=== PATIENT | female | born 1940 | race Caucasian/White ===

== ENCOUNTER 2021-01-25 10:34 | Inpatient (IN) | payer MEDICARE ==
[2021-01-25] VITALS (24 sets, daily range): BP systolic 106–142; BP diastolic 40–96
[~2021-01-25] VITALS: Ht 160 cm; Wt 48.2 kg
[~2021-01-25 10:34] MED LIST: ATOR10 PO; FAMO20TA8 PO; LEVO75CA5 PO; OLME20TA10 PO
[2021-01-25] MEDS ORDERED: SENN8.6T32 PO (12:10)
[2021-01-25] MEDS ORDERED: DOCU-116 PO (12:16)
[2021-01-25] MEDS ORDERED: ALBU6.7H9 IH (12:16)
[2021-01-25] MEDS ORDERED: FAMO-136 PO (12:16)
[2021-01-25] MEDS ORDERED: ENOX40DI8 SQ (12:16)
[2021-01-25] MEDS ORDERED: SACU1TAB PO (12:16)
[2021-01-25] MEDS ORDERED: LEVO88TA4 PO (12:16)
[2021-01-25] MEDS ORDERED: POLY17PO4 PO (12:16)
[2021-01-25] MEDS ORDERED: ATOR10TA PO (12:16)
[2021-01-25] MEDS ORDERED: HYDR12.54 PO (12:16)
[2021-01-25] MEDS: CEFAZOLIN SODIUM 1 GM VIAL IVP SCH ×2 (13:35→21:19)
[2021-01-25] MEDS ORDERED: LACTATED RINGERS 1000ML 1,000 ML IV ONE (14:09)
[2021-01-25] MEDS ORDERED: FENTANYL CITRATE PF 50 MCG/1 ML 2ML VIAL ONE (14:12)
[2021-01-25] MEDS ORDERED: MIDAZOLAM HCL 1 MG/ML 2ML VIAL ONE (14:12)
[2021-01-25] MEDS ORDERED: ROCURONIUM 10MG/1ML SYR 10 MG/ML ML ONE (14:16)
[2021-01-25] MEDS ORDERED: ONDANSETRON 4MG INJ ONE (15:09)
[2021-01-25] MEDS ORDERED: EPHEDRINE SULFATE 50 MG/ML AMPULE ONE (15:16)
[2021-01-25] MEDS ORDERED: BACITRACIN 28.4 GM OINT TP ONE (15:32)
[2021-01-25] MEDS ORDERED: TRAMADOL HCL 50 MG TABLET PEG PRN (20:00)
[2021-01-25] MEDS: LACTOBACILLUS RHAMNOSUS GG 1 EACH CAP.SPRINK PO SCH (21:19)
[2021-01-25] MEDS: ATORVASTATIN 10 MG TABLET PEG SCH (21:36)
[2021-01-26 03:42] VITALS: BP 156/72
[2021-01-26 04:30] LABS: BASOPHILS % (AUTO) 0.5 % (0.0-5.0); HEMATOCRIT 30.7 % (36-48); LYMPHOCYTES % (AUTO) 13.5 % (21.0-51.0); MEAN CORPUSCULAR HEMOGLOBIN 30.4 pg (27.0-33.0); MEAN CORPUSCULAR HGB CONC 31.6 g/dL (32.0-36.0); MEAN CORPUSCULAR VOLUME 96.2 fL (79-99); NEUTROPHILS % (AUTO) 80.9 % (40.0-77.0); PLATELET COUNT (AUTO) 545 K/uL (130-400); RED BLOOD CELL COUNT(AUTO) 3.19 MIL/uL (4.00-5.50); RED CELL DISTRIBUTION WIDTH 13.8 % (11.0-15.5); WHITE BLOOD COUNT (AUTO) 14.6 K/uL (4.8-10.8)
[2021-01-26 05:12] LABS: % IRON SATURATION 15.8 % (22-44); ALANINE AMINOTRANSFERASE 65 U/L (12-78); ALBUMIN 2.6 g/dL (3.5-5.0); ASPARTATE AMINOTRANSFERASE 35 U/L (10-37); BILIRUBIN,TOTAL 0.4 mg/dL (0.2-1.0); CARBON DIOXIDE 26 mmol/L (21-32); CHLORIDE 104 mmol/L (101-111); CREATININE 0.8 mg/dL (0.5-1.5); GLOMERULAR FILTR. RATE CALC 73 mL/min (>60); GLUCOSE,RANDOM 118 mg/dL (70-105); PHOSPHORUS 3.2 mg/dL (2.5-4.9); POTASSIUM 4.2 mmol/L (3.5-5.1); SODIUM SERUM 140 mmol/L (136-145); TOTAL PROTEIN, SERUM 6.1 g/dL (6.0-8.3); UREA NITROGEN, BLOOD 23 mg/dL (7-18)
[2021-01-26] MEDS: CEFAZOLIN SODIUM 1 GM VIAL IVP SCH ×3 (05:32→21:45)
[2021-01-26] MEDS: LEVOTHYROXINE 88 MCG TABLET PEG SCH (05:32)
[2021-01-26 08:00] VITALS: BP 140/84
[2021-01-26] MEDS: HYDROCHLOROTHIAZIDE 25 MG TABLET PEG SCH (09:48)
[2021-01-26] MEDS: ENOXAPARIN SODIUM 30 MG/0.3 ML SQ SCH (09:48)
[2021-01-26] MEDS: FAMOTIDINE 20MG TAB PEG SCH (09:48)
[2021-01-26 12:10] VITALS: BP 120/35
[2021-01-26 16:16] VITALS: BP 132/57
[2021-01-26] MEDS ORDERED: ARTIFICAL TEARS SOL 15 ML OU PRN (20:00)
[2021-01-26 21:28] VITALS: BP 143/76
[2021-01-26] MEDS: LACTOBACILLUS RHAMNOSUS GG 1 EACH CAP.SPRINK PO SCH (21:45)
[2021-01-26] MEDS: ATORVASTATIN 10 MG TABLET PEG SCH (21:45)
[2021-01-26 23:52] VITALS: BP 143/76
[2021-01-27 03:29] VITALS: BP 156/63
[2021-01-27 04:52] VITALS: BP 156/53
[2021-01-27 04:57] LABS: BASOPHILS % (AUTO) 0.9 % (0.0-5.0); HEMATOCRIT 29.7 % (36-48); LYMPHOCYTES % (AUTO) 15.3 % (21.0-51.0); MEAN CORPUSCULAR HEMOGLOBIN 30.5 pg (27.0-33.0); MEAN CORPUSCULAR HGB CONC 32.3 g/dL (32.0-36.0); MEAN CORPUSCULAR VOLUME 94.3 fL (79-99); MONOCYTES % (AUTO) 9.3 % (3.0-13.0); NEUTROPHILS % (AUTO) 71.7 % (40.0-77.0); PLATELET COUNT (AUTO) 514 K/uL (130-400); RED BLOOD CELL COUNT(AUTO) 3.15 MIL/uL (4.00-5.50); RED CELL DISTRIBUTION WIDTH 14.4 % (11.0-15.5); WHITE BLOOD COUNT (AUTO) 16.7 K/uL (4.8-10.8)
[2021-01-27 05:13] LABS: ALBUMIN 2.7 g/dL (3.5-5.0); BILIRUBIN,TOTAL 0.4 mg/dL (0.2-1.0); CREATININE 0.8 mg/dL (0.5-1.5); POTASSIUM 3.6 mmol/L (3.5-5.1); TOTAL PROTEIN, SERUM 6.1 g/dL (6.0-8.3)
[2021-01-27] MEDS: LEVOTHYROXINE 88 MCG TABLET PEG SCH (06:43)
[2021-01-27] MEDS: CEFAZOLIN SODIUM 1 GM VIAL IVP SCH ×2 (06:43→13:50)
[2021-01-27 08:00] VITALS: BP 133/58
[2021-01-27] MEDS: HYDROCHLOROTHIAZIDE 25 MG TABLET PEG SCH (08:34)
[2021-01-27] MEDS: FAMOTIDINE 20MG TAB PEG SCH (08:35)
[2021-01-27] MEDS: ENOXAPARIN SODIUM 30 MG/0.3 ML SQ SCH (08:36)
[2021-01-27 16:00] VITALS: BP 125/66
== END 2021-01-27 18:45 | DRG 907 ==
LOC: 3CH 10:34
PROVIDERS: ADMIT Otolaryngology; ATTEND Otolaryngology
PROC: 0KB20ZZ Excision of Right Neck Muscle, Open Approach (ICD-10-PCS; principal; 2021-01-25 15:06)
DX: T81.31XA Disruption of external operation (surgical) wound, not elsewhere classified, initial encounter (principal); E43 Unspecified severe protein-calorie malnutrition; Z68.1 Body mass index [BMI] 19.9 or less, adult; C10.9 Malignant neoplasm of oropharynx, unspecified; E78.5 Hyperlipidemia, unspecified; D63.0 Anemia in neoplastic disease; E03.9 Hypothyroidism, unspecified; K21.9 Gastro-esophageal reflux disease without esophagitis; I11.0 Hypertensive heart disease with heart failure; I50.9 Heart failure, unspecified; R74.02 Elevation of levels of lactic acid dehydrogenase [LDH]; Y83.8 Other surgical procedures as the cause of abnormal reaction of the patient, or of later complication, without mention of misadventure at the time of the procedure; Z93.0 Tracheostomy status; Y92.89 Other specified places as the place of occurrence of the external cause; Z85.818 Personal history of malignant neoplasm of other sites of lip, oral cavity, and pharynx; Z88.2 Allergy status to sulfonamides; Z88.5 Allergy status to narcotic agent; Z83.3 Family history of diabetes mellitus; Z82.49 Family history of ischemic heart disease and other diseases of the circulatory system; Z82.3 Family history of stroke
CPT/HCPCS: 36415; 80053; 82607; 82728; 82746; 83540; 83550; 83735; 84100; 84145; 85025; 85045; 87070; 87076; 87077; 87186; 87205; A4606; G0378; J0690; J1650; J2250; J2405; J3010; J3490; J7120

== ENCOUNTER 2021-01-31 16:08 | Inpatient (IN) | payer MEDICARE ==
[~2021-01-31] VITALS: Ht 157.5 cm; Wt 50.9 kg
[~2021-01-31 16:08] MED LIST changes: +ALBU6.7H9 IH; -ATOR10 PO; +ATOR10TA PO; +DOCU-116 PO; +ENOX40DI8 SQ; +FAMO-136 PO; -FAMO20TA8 PO; +HYDR12.54 PO; -LEVO75CA5 PO; +LEVO88TA4 PO; -OLME20TA10 PO; +POLY17PO4 PO; +SENN8.6T32 PO
[2021-01-31 18:30] VITALS: BP 111/32
[2021-01-31] MEDS ORDERED: ACETAMINOPHEN 650 MG/20.3 ML UDCUP PEG PRN ×2 (18:30)
[2021-01-31] MEDS ORDERED: NITROGLYCERIN 0.4 MG SL TAB SL PRN (18:30)
[2021-01-31] MEDS ORDERED: 0.9%NACL 1000ML 1,000 ML IV SCH (18:30)
[2021-01-31] MEDS ORDERED: ONDANSETRON 4MG INJ IV PRN (18:30)
[2021-01-31 19:10] LABS: HEMATOCRIT 30.4 % (36-48); MEAN CORPUSCULAR HEMOGLOBIN 30.8 pg (27.0-33.0); MEAN CORPUSCULAR HGB CONC 32.2 g/dL (32.0-36.0); MEAN CORPUSCULAR VOLUME 95.6 fL (79-99); PLATELET COUNT (AUTO) 453 K/uL (130-400); RED BLOOD CELL COUNT(AUTO) 3.18 MIL/uL (4.00-5.50); RED CELL DISTRIBUTION WIDTH 14.1 % (11.0-15.5); WHITE BLOOD COUNT (AUTO) 13.1 K/uL (4.8-10.8)
[2021-01-31 19:22] LABS: INR 1.09 (0.85-1.15); PROTHROMBIN TIME 11.8 SEC (9.6-11.6)
[2021-01-31 19:23] LABS: PARTIAL THROMBOPLASTIN TIME 28.9 SEC (26.3-35.5)
[2021-01-31 19:28] LABS: BAND NEUTROPHILS % (MANUAL) 4 % (0-2); BASOPHILS % (MANUAL) 3 % (0-2); EOSINOPHILS % (MANUAL) 5 % (1-6); LYMPHOCYTES % (MANUAL) 10 % (22-44); MAN.DIFF COMMENT-IMPRESSION MANUAL DIFFERENTIAL; MONOCYTES % (MANUAL) 3 % (2-9); REACTIVE LYMPHOCYTES 2 % (0-0); SEGMENTED NEUTROPHILS % 73 % (40-70)
[2021-01-31 19:29] LABS: PLATELET MORPHOLOGY COMMENT LARGE PLTS PRESENT
[2021-01-31 19:33] LABS: ALBUMIN 2.8 g/dL (3.5-5.0); BILIRUBIN,TOTAL 0.4 mg/dL (0.2-1.0); CREATININE 0.8 mg/dL (0.5-1.5); MAGNESIUM 1.7 mg/dL (1.80-2.40); POTASSIUM 3.5 mmol/L (3.5-5.1); TOTAL PROTEIN, SERUM 6.4 g/dL (6.0-8.3)
[2021-01-31 20:36] VITALS: BP 125/42
[2021-01-31] MEDS: 0.9%NACL 1000ML 1,000 ML IV SCH (20:51)
[2021-01-31] MEDS: FAMOTIDINE 20MG VIAL IV SCH (21:23)
[2021-01-31] MEDS ORDERED: MAGNESIUM 2GM PREMIX 50ML 50 ML IV SCH (23:30)
[2021-02-01] VITALS (25 sets, daily range): BP systolic 121–166; BP diastolic 41–71
[2021-02-01] MEDS: 0.9%NACL 1000ML 1,000 ML IV SCH ×2 (05:59→17:21)
[2021-02-01 06:01] LABS: BASOPHILS % (AUTO) 1.6 % (0.0-5.0); EOSINOPHILS % (AUTO) 2.7 % (0.0-8.0); HEMATOCRIT 32.6 % (36-48); MEAN CORPUSCULAR HEMOGLOBIN 30.9 pg (27.0-33.0); MEAN CORPUSCULAR HGB CONC 31.9 g/dL (32.0-36.0); MEAN CORPUSCULAR VOLUME 96.7 fL (79-99); MONOCYTES % (AUTO) 9.4 % (3.0-13.0); NEUTROPHILS % (AUTO) 67.7 % (40.0-77.0); PLATELET COUNT (AUTO) 420 K/uL (130-400); RED BLOOD CELL COUNT(AUTO) 3.37 MIL/uL (4.00-5.50); RED CELL DISTRIBUTION WIDTH 14.3 % (11.0-15.5); WHITE BLOOD COUNT (AUTO) 11.2 K/uL (4.8-10.8)
[2021-02-01 06:48] LABS: % IRON SATURATION 31.5 % (22-44)
[2021-02-01] MEDS ORDERED: LIDOCAINE 1%-EPI 1:100,000 20 ML VIAL IJ ONE (08:33)
[2021-02-01] MEDS ORDERED: CEFAZOLIN SODIUM 1 GM VIAL ONE (08:33)
[2021-02-01] MEDS ORDERED: MINERAL OIL 30 ML UDCUP ONE (08:33)
[2021-02-01] MEDS ORDERED: DEXAMETHASONE SOD PHOSPHATE 10MG/ML 1ML VIAL ONE (08:56)
[2021-02-01] MEDS ORDERED: SUCCINYLCHOLINE CHLORIDE 20 MG/ML 10 ML VIAL ONE (08:56)
[2021-02-01] MEDS ORDERED: GLYCOPYRROLATE 1 MG/5 ML SYRINGE ONE (08:56)
[2021-02-01] MEDS ORDERED: LIDOCAINE PF 100MG/5ML (2%) SYRINGE 5ML ONE (08:56)
[2021-02-01] MEDS ORDERED: NEOSTIGMINE 5MG/5ML SYR IV ONE (08:57)
[2021-02-01] MEDS ORDERED: ROCURONIUM 10MG/1ML SYR 10 MG/ML ML ONE ×2 (08:57→10:53)
[2021-02-01] MEDS ORDERED: MIDAZOLAM HCL 1 MG/ML 2ML VIAL ONE (08:57)
[2021-02-01] MEDS ORDERED: ONDANSETRON 4MG INJ ONE ×2 (08:57→10:27)
[2021-02-01] MEDS ORDERED: PROPOFOL 10 MG/ML 20ML VIAL IV ONE (08:57)
[2021-02-01] MEDS ORDERED: FENTANYL CITRATE PF 50 MCG/1 ML 5ML AMP IV ONE (08:59)
[2021-02-01] MEDS: FAMOTIDINE 20MG VIAL IV SCH ×2 (09:00→21:07)
[2021-02-01] MEDS ORDERED: EPHEDRINE SULFATE 50 MG/ML AMPULE ONE (09:36)
[2021-02-01] MEDS ORDERED: PHENYLEPHRINE HCL 10 MG/ML 1ML VIAL IV ONE (11:28)
[2021-02-01] MEDS ORDERED: MEPERIDINE-PF 25 MG/ML SYG ONE (13:08)
[2021-02-01] MEDS ORDERED: NEOMY SULF/BACITRAC ZN/POLY OINT 30GM TUBE TP ONE (13:15)
[2021-02-01] MEDS ORDERED: BACITRACIN 28.4 GM OINT TP ONE (13:17)
[2021-02-01] MEDS ORDERED: POTASSIUM CHLORIDE 20MEQ/100ML 100 ML IV PRN (15:00)
[2021-02-01] MEDS ORDERED: LIDOCAINE HCL-MPF 1% 2ML VIAL IV PRN (15:00)
[2021-02-02] VITALS (7 sets, daily range): BP systolic 128–161; BP diastolic 43–61
[2021-02-02] MEDS: 0.9%NACL 1000ML 1,000 ML IV SCH (04:22)
[2021-02-02] MEDS ORDERED: PHARMACY COMMUNICATION MISC SCH ×2 (08:30→09:30)
[2021-02-02] MEDS ORDERED: DOCUSATE SODIUM 100 MG CAP PO SCH (09:00)
[2021-02-02] MEDS: HYDROCHLOROTHIAZIDE 25 MG TABLET PO SCH (09:48)
[2021-02-02] MEDS: POLYETHYLENE GLYCOL 3350 17 GM POWD.PACK PO SCH (09:48)
[2021-02-02] MEDS: DOCUSATE NA 100MG/10ML UDCUP PEG SCH ×2 (09:48→22:59)
[2021-02-02] MEDS: FAMOTIDINE 20MG TAB PO SCH (09:48)
[2021-02-02] MEDS ORDERED: LEVOFLOXACIN 500 MG/D5W 100 ML 100 ML IV SCH (19:30)
[2021-02-02] MEDS ORDERED: ATORVASTATIN 10 MG TABLET PO SCH (21:00)
[2021-02-02] MEDS ORDERED: SENNOSIDES 8.6 MG TABLET PO SCH (21:00)
[2021-02-02] MEDS: SENNOSIDES 8.6 MG TABLET PO SCH (22:59)
[2021-02-03 03:50] VITALS: BP 136/52
[2021-02-03 04:41] LABS: BASOPHILS % (AUTO) 0.9 % (0.0-5.0); EOSINOPHILS % (AUTO) 5.5 % (0.0-8.0); HEMATOCRIT 28.5 % (36-48); LYMPHOCYTES % (AUTO) 11.1 % (21.0-51.0); MEAN CORPUSCULAR HEMOGLOBIN 30.4 pg (27.0-33.0); MEAN CORPUSCULAR HGB CONC 31.2 g/dL (32.0-36.0); MEAN CORPUSCULAR VOLUME 97.3 fL (79-99); PLATELET COUNT (AUTO) 346 K/uL (130-400); RED BLOOD CELL COUNT(AUTO) 2.93 MIL/uL (4.00-5.50); RED CELL DISTRIBUTION WIDTH 14.5 % (11.0-15.5); WHITE BLOOD COUNT (AUTO) 16.4 K/uL (4.8-10.8)
[2021-02-03 05:00] LABS: ALBUMIN 2.3 g/dL (3.5-5.0); CREATININE 0.8 mg/dL (0.5-1.5); MAGNESIUM 1.5 mg/dL (1.80-2.40); PHOSPHORUS 2.1 mg/dL (2.5-4.9); POTASSIUM 3.5 mmol/L (3.5-5.1)
[2021-02-03] MEDS ORDERED: LEVOTHYROXINE 100 MCG TABLET PO SCH (06:30)
[2021-02-03 07:30] VITALS: BP 124/40
[2021-02-03] MEDS: DOCUSATE NA 100MG/10ML UDCUP PEG SCH ×2 (08:49→22:51)
[2021-02-03] MEDS: POLYETHYLENE GLYCOL 3350 17 GM POWD.PACK PO SCH (08:49)
[2021-02-03] MEDS: FAMOTIDINE 20MG TAB PO SCH (08:49)
[2021-02-03] MEDS: HYDROCHLOROTHIAZIDE 25 MG TABLET PO SCH (08:50)
[2021-02-03] MEDS ORDERED: EPOETIN ALFA-EPBX (NON-ESRD) 10,000 UNIT/ML VIAL SQ SCH (10:00)
[2021-02-03] MEDS: LACTULOSE 20 GM/30 ML UDCUP PEG ONE ×2 (10:00→17:06)
[2021-02-03] MEDS ORDERED: ZOSYN 3.375GM +NS 50ML IV SCH (10:00)
[2021-02-03] MEDS ORDERED: MAGNESIUM 2GM PREMIX 50ML 50 ML IV SCH (10:00)
[2021-02-03] MEDS: IRON SUCROSE COMPLEX 300 MG in 0.9%NACL 50ML 50 ML IV SCH (10:18)
[2021-02-03] MEDS ORDERED: COMPOUND IV MISC 1 EACH IVSOLN MISC PRN (10:30)
[2021-02-03 12:28] VITALS: BP 140/51
[2021-02-03 16:30] VITALS: BP 128/53
[2021-02-03] MEDS: ZOSYN 3.375GM+NS 50ML 50 ML IV SCH (17:02)
[2021-02-03] MEDS ORDERED: LACTULOSE 20 GM/30 ML UDCUP ONE ×2 (17:05→17:06)
[2021-02-03] MEDS: NEUTRA-PHOS PACKET 1 EACH PO SCH ×3 (17:09→22:59)
[2021-02-03] MEDS ORDERED: LEVOFLOXACIN 250 MG/D5W 50ML IVPB SCH (19:30)
[2021-02-03 19:45] VITALS: BP 153/49
[2021-02-03] MEDS ORDERED: POTASSIUM CHLORIDE 10% ELIXIR 20 MEQ/15 ML UDCUP PO PRN (20:00)
[2021-02-03] MEDS ORDERED: ATORVASTATIN 10 MG TABLET PEG SCH (21:00)
[2021-02-03 21:58] LABS: APPEARANCE,URINE Clear (CLEAR); BILIRUBIN,URINE Negative (NEGATIVE); COLOR,URINE Yellow (YELLOW); GLUCOSE, URINE (UA) Negative (NEGATIVE); KETONES,URINE Negative (NEGATIVE); LEUKOCYTE ESTERASE ,URINE Small (NEGATIVE); NITRATE,URINE Negative (NEGATIVE); OCCULT BLOOD,URINE Trace (NEGATIVE); PROTEIN,URINE Negative (NEGATIVE); UROBILINOGEN,URINE 0.2 mg/dL (0.2-1.0)
[2021-02-03 22:04] LABS: BACTERIA,URINE Few /HPF (None Seen); SQUAMOUS EPITHELIAL CELL,UR Few /HPF (0-2); TRANSITIONAL EPI CELLS,URINE Few /HPF (None Seen)
[2021-02-03] MEDS: SENNOSIDES 8.6 MG TABLET PO SCH (22:52)
[2021-02-03 23:33] VITALS: BP 166/51
[2021-02-04] MEDS: ZOSYN 3.375GM+NS 50ML 50 ML IV SCH ×2 (02:41→10:27)
[2021-02-04 03:28] VITALS: BP 129/50
[2021-02-04 04:51] LABS: BASOPHILS % (AUTO) 1.2 % (0.0-5.0); EOSINOPHILS % (AUTO) 9.2 % (0.0-8.0); HEMATOCRIT 27.2 % (36-48); LYMPHOCYTES % (AUTO) 10.4 % (21.0-51.0); MEAN CORPUSCULAR HEMOGLOBIN 30.9 pg (27.0-33.0); MEAN CORPUSCULAR VOLUME 96.5 fL (79-99); MONOCYTES % (AUTO) 9.7 % (3.0-13.0); NEUTROPHILS % (AUTO) 68.9 % (40.0-77.0); PLATELET COUNT (AUTO) 322 K/uL (130-400); RED BLOOD CELL COUNT(AUTO) 2.82 MIL/uL (4.00-5.50); RED CELL DISTRIBUTION WIDTH 14.3 % (11.0-15.5); WHITE BLOOD COUNT (AUTO) 12.8 K/uL (4.8-10.8)
[2021-02-04 05:11] LABS: CREATININE 0.7 mg/dL (0.5-1.5); MAGNESIUM 1.8 mg/dL (1.80-2.40); PHOSPHORUS 2.6 mg/dL (2.5-4.9); POTASSIUM 3.7 mmol/L (3.5-5.1)
[2021-02-04] MEDS ORDERED: LEVOTHYROXINE 100 MCG TABLET PEG SCH (06:30)
[2021-02-04] MEDS: IRON SUCROSE COMPLEX 300 MG in 0.9%NACL 50ML 50 ML IV SCH (08:00)
[2021-02-04] MEDS: DOCUSATE NA 100MG/10ML UDCUP PEG SCH (08:00)
[2021-02-04] MEDS: POLYETHYLENE GLYCOL 3350 17 GM POWD.PACK PO SCH (08:02)
[2021-02-04] MEDS: NEUTRA-PHOS PACKET 1 EACH PO SCH (08:02)
[2021-02-04 08:06] VITALS: BP 132/45
[2021-02-04] MEDS ORDERED: HYDROCHLOROTHIAZIDE 25 MG TABLET PEG SCH (09:00)
[2021-02-04] MEDS ORDERED: FAMOTIDINE 20MG TAB PEG SCH (09:00)
[2021-02-04 10:49] VITALS: BP 136/52
[2021-02-04 15:36] VITALS: BP 137/51
[2021-03-19] MEDS ORDERED: MAGN400T56 PO (03:23)
[2021-03-19] MEDS ORDERED: levaquin PEG (03:23)
[2021-03-19] MEDS ORDERED: MUPI22OI2 TP (03:23)
[2021-03-19] MEDS ORDERED: CEFT2.5V IV (03:23)
[2021-03-19] MEDS ORDERED: ACET325T51 PO (03:23)
[2021-03-19] MEDS ORDERED: LOSA50TA64 PEG (03:23)
[2021-03-19] MEDS ORDERED: HYDR-3421 PEG (03:23)
[2021-03-19] MEDS ORDERED: ONDA4TAB4 PO (03:23)
[2021-03-19] MEDS ORDERED: ASCO500T10 PEG (03:23)
[2021-03-19] MEDS ORDERED: LEVO250P6 IV (03:23)
[2021-03-19] MEDS ORDERED: SULF1TAB42 PO (03:23)
[2021-03-19] MEDS ORDERED: GLYC2TAB21 PEG (03:23)
[2021-03-19] MEDS ORDERED: [UNRECOGNIZED DRUG - CODE] IH (03:23)
[2021-03-19] MEDS ORDERED: LEVO88TA PEG (03:23)
[2021-03-19] MEDS ORDERED: FAMO20TA8 PO (03:23)
[2021-03-19] MEDS ORDERED: PIPE3.379 IV (03:23)
[2021-03-19] MEDS ORDERED: ERTA1VIA3 IV (03:23)
== END 2021-02-04 19:15 | DRG 981 ==
LOC: OBSVTOIN 18:00 → 3AH 18:00
PROVIDERS: ADMIT Internal Medicine; ATTEND Internal Medicine
PROC: 0KXJ0ZZ Transfer Left Thorax Muscle, Open Approach (ICD-10-PCS; principal; 2021-02-01 09:50)
DX: C06.9 Malignant neoplasm of mouth, unspecified (principal); E43 Unspecified severe protein-calorie malnutrition; D64.9 Anemia, unspecified; D72.829 Elevated white blood cell count, unspecified; Z93.0 Tracheostomy status; Z20.822 Contact with and (suspected) exposure to COVID-19; K21.9 Gastro-esophageal reflux disease without esophagitis; E03.9 Hypothyroidism, unspecified; E78.5 Hyperlipidemia, unspecified; I50.9 Heart failure, unspecified; I11.0 Hypertensive heart disease with heart failure; D63.0 Anemia in neoplastic disease; E83.42 Hypomagnesemia; E83.39 Other disorders of phosphorus metabolism; Z68.20 Body mass index [BMI] 20.0-20.9, adult; Z88.2 Allergy status to sulfonamides; Z88.5 Allergy status to narcotic agent; Z85.818 Personal history of malignant neoplasm of other sites of lip, oral cavity, and pharynx; Z82.3 Family history of stroke; Z83.3 Family history of diabetes mellitus; Z82.49 Family history of ischemic heart disease and other diseases of the circulatory system
CPT/HCPCS: 36415; 71045; 80048; 80053; 81001; 82040; 82270; 82607; 82728; 82746; 83540; 83550; 83735; 83880; 84100; 84134; 84145; 84443; 85025; 85610; 85730; 87040; 87071; 87077; 87088; 87186; 87205; 87635; 88305; 88307; 93005; A4344; G0378; J0330; J0690; J1100; J1756; J1956; J2001; J2175; J2250; J2370; J2405; J2543; J2704; J2710; J3010; J3475; J3490